=== PATIENT | male | born 2000 | race Caucasian/White ===

== ENCOUNTER 2021-06-15 03:01 | Emergency (ER) | payer OTHER ==
[~2021-06-15] VITALS: Ht 190.5 cm; Wt 88.5 kg
[2021-06-15 03:31] LABS: POTASSIUM 3.6 mmol/L (3.5-5.1)
[2021-06-15 03:35] LABS: BASOPHILS % (AUTO) 0.8 % (0.0-5.0); EOSINOPHILS % (AUTO) 3.1 % (0.0-8.0); HEMATOCRIT 46.1 % (42-54); LYMPHOCYTES % (AUTO) 33.4 % (21.0-51.0); MEAN CORPUSCULAR HEMOGLOBIN 32.9 pg (27.0-33.0); MEAN CORPUSCULAR HGB CONC 34.9 g/dL (32.0-36.0); MEAN CORPUSCULAR VOLUME 94.1 fL (79-99); MONOCYTES % (AUTO) 11.2 % (3.0-13.0); NEUTROPHILS % (AUTO) 50.4 % (40.0-77.0); PLATELET COUNT (AUTO) 209 K/uL (130-400); WHITE BLOOD COUNT (AUTO) 10.2 K/uL (4.8-10.8)
[2021-06-15 03:36] LABS: ALBUMIN 4.4 g/dL (3.5-5.0); BILIRUBIN,TOTAL 0.8 mg/dL (0.2-1.0)
[2021-06-15 03:41] LABS: INR 1.07 (0.85-1.15); PROTHROMBIN TIME 11.6 SEC (9.6-11.6)
[2021-06-15] MEDS ORDERED: KETOROLAC 30MG VIAL (30MG/ML) IVP ONE (04:00)
[2021-06-15] MEDS ORDERED: FAMOTIDINE 20MG VIAL IV ONE (04:00)
[2021-06-15] MEDS ORDERED: NAPR-1180 PO (06:38)
[2021-06-15 06:43] VITALS: BP 123/67
== END 2021-06-15 06:51 | disposition home or self-care (01) ==
LOC: EDH 03:01
DX: F41.9 Anxiety disorder, unspecified (principal); R07.89 Other chest pain; Z79.1 Long term (current) use of non-steroidal anti-inflammatories (NSAID)
CPT/HCPCS: 36415; 71046; 80053; 85025; 85378; 85610; 93005; 96374; 96375; 99285; J1885; J3490